=== PATIENT | male | born 1955 ===

== ENCOUNTER 2019-07-03 14:28 | Outpatient (CLI) | payer OTHER | END 2019-07-03 14:30 | disposition home or self-care (01) | LOC: TOM 14:28 | DX: G43.101 Migraine with aura, not intractable, with status migrainosus (principal) ==

== ENCOUNTER 2024-10-24 10:56 | Outpatient (CLI) | payer OTHER | END 2024-10-24 11:12 | disposition home or self-care (01) | LOC: MRI 10:56 | PROVIDERS: ATTEND General Practice | DX: C61 Malignant neoplasm of prostate (principal); M50.10 Cervical disc disorder with radiculopathy, unspecified cervical region; M51.16 Intervertebral disc disorders with radiculopathy, lumbar region; M51.14 Intervertebral disc disorders with radiculopathy, thoracic region; Z98.1 Arthrodesis status | CPT/HCPCS: 72141; 72146; 72148 ==